=== PATIENT | male | born 1945 | race Caucasian/White ===

== ENCOUNTER 2019-11-02 19:27 | Inpatient (IN) | payer MEDICARE ==
[2019-11-02 20:16] LABS: #Eosinphils 0.4 thou/uL (0.0-0.7); #Lymphocytes 1.8 thou/uL (1.20-3.40); #Monocytes 1.5 thou/uL (0.11-0.59); #Neutrophils 12.2 thou/uL (1.40-6.50); %Basophils 0.3 % (0.0-1.0); %Eosinophils 2.3 % (0.0-10.0); %Monocytes 9.2 % (0.0-10.0); %Neutrophils 77.2 % (42.0-75.0); Hemoglobin 16.5 g/dL (14.0-18.0); Mean Corpuscular Hemoglobin 33.7 pg (27.0-31.0); Mean Corpuscular Volume 96.2 fL (78.0-98.0); Mean Platelet Volume 9.1 fL (7.4-10.4); Platelet Count 310 thou/uL (130-400); RBC Distribution Width 11.6 % (11.5-14.5); White Blood Cell (WBC) Count 15.8 thou/uL (4.8-10.8)
[2019-11-02 20:35] LABS: ALT (SGPT) 19 U/L (8-55); AST (SGOT) 14 U/L (5-34); Albumin 4.8 g/dL (3.4-4.8); Alkaline Phosphatase 115 U/L (40-110); Anion Gap 19 mmol/L (10-20); BUN (Urea Nitrogen) 17 mg/dL (8.4-25.7); Bilirubin, Total 0.6 mg/dL (0.2-1.2); Calc. Creatinine Clearance 0 mL/min (70-130); Calcium 10.3 mg/dL (7.8-10.44); Carbon Dioxide 24 mmol/L (23-31); Chloride 98 mmol/L (98-107); Estimated GFR-MDRD 65; Globulin 3.1 g/dL (2.4-3.5); Glucose 77 mg/dL (83-110); Potassium 3.2 mmol/L (3.5-5.1); Protein, Total 7.9 g/dL (5.8-8.1); Sodium 138 mmol/L (136-145)
[2019-11-02 22:04] LABS: Bilirubin Negative (Negative); Blood, Urine Negative (Negative); Clarity Clear (Clear); Glucose, Urine (Dipstick) Normal (Negative); Leukocyte Negative Leu/uL (Negative); Nitrite Negative (Negative); Protein, Urine (Dipstick) 10 mg/dL (Neg-Trace); Urobilinogen Normal mg/dL (Less than 2)
[2019-11-02 23:11] LABS: Lactic Acid 2.2 mmol/L (0.5-2.2)
[2019-11-02] MEDS ORDERED: Vancomycin 1 GM/200 ML BAG ONE (23:12)
[2019-11-02] MEDS ORDERED: Cefepime 2 GM VIAL ONE (23:12)
[2019-11-02] MEDS ORDERED: D5 1/2 NS w/20 mEq KCL 1,000 ML IV SCH (23:45)
[2019-11-03 01:47] VITALS: BMI 26.6
[2019-11-03] MEDS ORDERED: D5 1/2 NS w/20 mEq KCL 1,000 ML IV SCH (02:47)
[2019-11-03] MEDS ORDERED: HumaLOG 300 UNITS/3 ML VIAL SC PRN (07:57)
[2019-11-03] MEDS ORDERED: Bisacodyl 5 MG TAB PO PRN (07:57)
[2019-11-03] MEDS ORDERED: Bisacodyl 10 MG SUPP PR PRN (07:57)
[2019-11-03] MEDS ORDERED: Loratadine 10 MG TAB PO PRN (07:57)
[2019-11-03] MEDS ORDERED: Dextrose 5% in Water 1,000 ML IV PRN (07:57)
[2019-11-03] MEDS ORDERED: Acetaminophen 325 MG TAB PO PRN (07:57)
[2019-11-03] MEDS ORDERED: Sodium Chloride 0.65% Nasal 44 ML BOT EA NARE PRN (07:57)
[2019-11-03] MEDS ORDERED: Diabetic Tussin 200 MG/10 ML UDCUP PO PRN (07:57)
[2019-11-03] MEDS ORDERED: hydrALAZINE 20 MG/ML VIAL SLOW IVP PRN (07:57)
[2019-11-03] MEDS ORDERED: Ondansetron PF 4 MG/2 ML Vial IVP PRN (07:57)
[2019-11-03] MEDS ORDERED: Cepastat Lozenges 1 LOZ PO PRN (07:57)
[2019-11-03] MEDS ORDERED: Ondansetron ODT 4 MG TAB PO PRN (07:57)
[2019-11-03] MEDS ORDERED: Senokot S 8.6-50 MG TAB PO PRN (07:57)
[2019-11-03] MEDS ORDERED: Zolpidem Tartrate 5 MG TAB PO PRN (07:57)
[2019-11-03] MEDS ORDERED: Calcium Carbonate 500 MG ChewTAB PO PRN (07:57)
[2019-11-03] MEDS ORDERED: Artificial Tears 18 DROP/0.9 ML EA EYE PRN (07:57)
[2019-11-03] MEDS ORDERED: HYDROcodone/Acetaminophen 5/325 mg Tablet PO PRN (07:57)
[2019-11-03] MEDS ORDERED: Dextrose 50% Abboject 50 ML SYRINGE SLOW IVP PRN (07:57)
[2019-11-03] MEDS ORDERED: Loperamide HCl 2 MG CAP PO PRN (07:57)
[2019-11-03] MEDS ORDERED: Potassium Chloride 20 MEQ TAB PO SCH (08:15)
[2019-11-03] MEDS: Cefepime 1 GM in Sodium Chloride 0.9% 100 ML IVPB SCH ×2 (08:57→20:29)
[2019-11-03] MEDS: Furosemide 20 MG TAB PO SCH (08:58)
[2019-11-03] MEDS: Gabapentin 300 MG CAP PO SCH ×3 (08:58→20:30)
[2019-11-03] MEDS: Ascorbic Acid 500 mg Chewable Tablet PO SCH ×2 (08:58→20:30)
[2019-11-03] MEDS: Metoprolol Tartrate 25 MG TAB PO SCH ×2 (08:59→20:30)
[2019-11-03] MEDS: Tamsulosin HCl 0.4 MG CAP PO SCH (08:59)
[2019-11-03] MEDS: Famotidine 20 MG TAB PO SCH ×2 (08:59→20:29)
[2019-11-03] MEDS: Enoxaparin Sodium 40 MG/0.4 ML SYRINGE SC SCH (08:59)
[2019-11-03] MEDS: HumaLOG 300 UNITS/3 ML VIAL SC PRN ×3 (08:59→17:29)
[2019-11-03] MEDS ORDERED: Non-Formulary Item 1 EACH (Insulin Detemir 100 Units/Ml [Levemir] 10 UNITS) SC SCH ×2 (09:00→21:00)
--- NOTE | 2019-11-03 09:03 | RAD ---
CHEST 1 VIEW: INDICATION: Weakness and history of sepsis. COMPARISON: Prior exam dated 08/22/2016. FINDINGS: Cardiomegaly is stable-appearing. Lungs are clear. No pleural effusion is evident. No acute osseou s abnormality is noted. IMPRESSION: No acute cardiopulmonary abnormality. POS: BH
[2019-11-03] MEDS: Pramipexole Di-HCl 0.25 MG TAB PO SCH ×2 (10:31→21:00)
[2019-11-03] MEDS: Insulin Glargine 10 UNITS in Pre-Filled Syringe 1 EACH SC SCH ×2 (10:31→21:12)
--- NOTE | 2019-11-03 11:49 | HP ---
PRIMARY CARE PHYSICIAN: [facility] Call admission. REASON FOR ADMISSION: Hypoglycemia, lactic acidosis, weakness, rule out sepsis. HISTORY OF PRESENT ILLNESS: A 74-year-old male, who has underlying history of diabetes mellitus, on insulin, who was perfectly healthy yesterday morning. Later on, the patient was experiencing weakness in bilateral lower extremity. His blood sugar was fluctuating. He was feeling very weak on his both lower extremity and he checked his blood sugar at that time, it was 71. Per the patient, it was very low for him. The patient ate candy at home and slightly feeling better. Subsequently, his blood sugar again started dropping. He called Paramedics. The patient's blood sugar was improving at that time. The patient was worried about his fluctuating blood sugar and that is why he decided to come to the hospital. He was found with leukocytosis. The patient reports that he had a similar type of problem when he had positive blood culture. The patient denies any UTI symptoms. The patient denies any cough, shortness of breath, or any sick exposure. When the patient arrived to emergency room, he was diaphoretic and his blood sugar was low which was treated with dextrose solution. The patient was admitted to medical floor. He was also found with lactic acidosis and there was concern of underlying sepsis and that is why the patient was given antibiotic therapy in the emergency room. After admission, the patient's blood sugar was going up and that is why IV fluid was discontinued. When I saw this patient, at that time the patient was not reporting any lower extremity weakness. The patient was feeling that his lower extremity weakness is resolved. His blood sugar is going on the higher side. The patient denies any fever or chills. The patient denies any chest pain or palpitation. The patient denies any nausea, vomiting, diarrhea, or abdominal pain. REVIEW OF SYSTEMS: CONSTITUTIONAL: Negative for weight loss or gain, ability to conduct usual activities. SKIN: Negative for rash, itching. EYES: Negative for double vision, pain. ENT/MOUTH: Negative for nose bleeding, neck stiffness, pain, tenderness. CARDIOVASCULAR: Negative for palpitations, dyspnea on exertion, orthopnea. RESPIRATORY: Negative for shortness of breath, wheezing, cough, hemoptysis, fever or night sweats. GASTROINTESTINAL: Negative for poor appetite, abdominal pain, heartburn, nausea, vomiting, constipation, or diarrhea. GENITOURINARY: Negative for urgency, frequency, dysuria, nocturia. MUSCULOSKELETAL: Negative for pain, swelling. NEUROLOGIC/PSYCHIATRIC: Negative for anxiety, depression. ALLERGY/IMMUNOLOGIC: Negative for skin rash, bleeding tendency. Please see my HPI for pertinent positives and negatives. All other review of systems reviewed and negative except as mentioned in the HPI. PAST MEDICAL HISTORY: 1. Diabetes type 2, insulin requiring. 2. Peripheral neuropathy due to diabetes. 3. Hypertension. 4. Dyslipidemia. 5. History of prostate cancer. PAST SURGICAL HISTORY: 1. Back surgery in 2014. 2. Left elbow surgery. 3. Prostatectomy. PAST PSYCHIATRIC HISTORY: Reviewed and negative. SOCIAL HISTORY: The patient lives at home. No history of tobacco, alcohol, or illicit drug abuse. FAMILY HISTORY: Positive for coronary artery disease and diabetes and cancer. ALLERGIES: NO KNOWN DRUG ALLERGIES. CURRENT HOME MEDICATIONS: 1. Vitamin C of 1000 mg p.o. twice daily. 2. Tylenol 1000 mg twice daily p.r.n. 3. Metoprolol 50 mg p.o. twice daily. 4. Pramipexole 0.5 mg twice daily. 5. Tresiba 20 units subcu in the morning and 38 units at bedtime. 6. Lipitor 20 mg p.o. at bedtime. 7. Magnesium 800 mg twice daily. 8. Lasix 20 mg p.o. daily. 9. Potassium chloride 10 mEq p.o. daily. 10. Omeprazole 20 mg twice daily. EMERGENCY ROOM COURSE: The patient has received cefepime and vancomycin as well as dextrose with half-normal saline. PHYSICAL EXAMINATION: VITAL SIGNS: On arrival, blood pressure 103/80, pulse 103, respiratory rate 17, temperature 97.6, saturation 100% on room air, weight 95.7 kg. GENERAL: The patient is currently alert, awake, no acute distress. HEENT: Head; normocephalic, atraumatic. NECK: Supple. No JVD. No meningeal signs of irritation. LUNGS: Clear to auscultation without any rhonchi or rales. CARDIAC: S1 and S2 regular. No murmur. No gallop. No rub. ABDOMEN: Soft, bowel sounds present, nontender, nondistended. No organomegaly. No mass. EXTREMITIES: No edema. Good distal pulsation. NEUROLOGIC: Nonfocal examination. The patient is moving all 4 limbs without any weakness of either extremity. Sensation intact. Reflexes symmetrical. Cranial nerve 2 through 12 intact. Speech normal. PSYCHIATRIC: Normal affect. SKIN: No skin rash. HEMATOLOGIC: No lymphadenopathy. IMAGING STUDIES: EKG showing sinus tachycardia. Nonspecific ST-T changes. Chest x-ray based on my review, no acute cardiopulmonary process. SIGNIFICANT LABORATORY DATA: CBC: WBC 15.8, hemoglobin 16.5, platelet 310. D-dimer less than 0.27. BMP: Sodium 138, potassium 3.2, chloride 98, carbon dioxide 24, BUN 17, creatinine 1.10, glucose 77, calcium 10.3, lactic acid 5.1, magnesium 1.9. LFT: AST 14, ALT is 19, alkaline phosphatase 115, albumin 4.8. Troponin 0.013. CRP less than 0.50. Urinalysis normal. Blood culture negative so far. ASSESSMENT: 1. Symptomatic hypoglycemia associated with diabetes type 2 requiring insulin. 2. Diabetes type 2, requiring insulin. 3. Lactic acidosis, rule out sepsis. 4. Leukocytosis, rule out sepsis. 5. Hypokalemia, replaced. 6. Gastroesophageal reflux disease. 7. Hypertension. 8. Benign enlargement of prostate with history of prostate cancer. PLAN: We will continue with empiric cefepime until we rule out sepsis. We will start low dose of glargine insulin 10 units subcu b.i.d. I have reconciled his home medication. We will start PT and OT. We will watch for any hypoglycemia and adjust medication. If culture remains negative, then we will consider discontinuing antibiotic therapy. We will repeat labs tomorrow. We will replace potassium. DVT PROPHYLAXIS: Lovenox 40 mg subcu daily. GI PROPHYLAXIS: Pepcid 20 mg p.o. b.i.d. CODE STATUS: The patient is full code. The patient does not have any surrogate decision maker. DISPOSITION PLAN: Based on clinical course in the next 24-48 hours. Plan of care discussed with the patient in detail. Job ID: [id number]
[2019-11-03] MEDS: Potassium Chloride 10 MEQ TAB PO SCH (20:30)
[2019-11-03] MEDS: Atorvastatin Calcium 20 MG TAB PO SCH (20:30)
[2019-11-04 06:03] LABS: #Basophils 0.1 thou/uL (0.0-0.2); #Eosinphils 0.5 thou/uL (0.0-0.7); #Lymphocytes 1.3 thou/uL (1.20-3.40); #Monocytes 0.7 thou/uL (0.11-0.59); %Basophils 0.6 % (0.0-1.0); %Eosinophils 5.8 % (0.0-10.0); %Lymphocytes 15.6 % (21.0-51.0); %Monocytes 8.5 % (0.0-10.0); %Neutrophils 69.4 % (42.0-75.0); Hemoglobin 14.5 g/dL (14.0-18.0); Mean Corpuscular HGB CONC 33.8 g/dL (32.0-36.0); Mean Corpuscular Hemoglobin 32.9 pg (27.0-31.0); Mean Corpuscular Volume 97.3 fL (78.0-98.0); Mean Platelet Volume 9.3 fL (7.4-10.4); Platelet Count 240 thou/uL (130-400); RBC Distribution Width 11.6 % (11.5-14.5); Red Blood Cell (RBC) Count 4.39 mill/uL (4.70-6.10); White Blood Cell (WBC) Count 8.6 thou/uL (4.8-10.8)
[2019-11-04] MEDS: HumaLOG 300 UNITS/3 ML VIAL SC PRN ×3 (06:19→17:28)
[2019-11-04 06:24] LABS: Lactic Acid 1.2 mmol/L (0.5-2.2)
[2019-11-04 06:42] LABS: ALT (SGPT) 13 U/L (8-55); AST (SGOT) 14 U/L (5-34); Albumin 3.7 g/dL (3.4-4.8); Alkaline Phosphatase 87 U/L (40-110); Anion Gap 12 mmol/L (10-20); BUN (Urea Nitrogen) 14 mg/dL (8.4-25.7); Bilirubin, Total 0.6 mg/dL (0.2-1.2); Calc. Creatinine Clearance 103 mL/min (70-130); Calcium 8.5 mg/dL (7.8-10.44); Carbon Dioxide 24 mmol/L (23-31); Chloride 104 mmol/L (98-107); Estimated GFR-MDRD Greater than 90; Globulin 2.4 g/dL (2.4-3.5); Glucose 199 mg/dL (83-110); Potassium 4.1 mmol/L (3.5-5.1); Protein, Total 6.1 g/dL (5.8-8.1); Sodium 136 mmol/L (136-145)
[2019-11-04] MEDS: Enoxaparin Sodium 40 MG/0.4 ML SYRINGE SC SCH (08:01)
[2019-11-04] MEDS: Cefepime 1 GM in Sodium Chloride 0.9% 100 ML IVPB SCH ×2 (08:02→20:06)
[2019-11-04] MEDS: Tamsulosin HCl 0.4 MG CAP PO SCH (08:02)
[2019-11-04] MEDS: Furosemide 20 MG TAB PO SCH (08:02)
[2019-11-04] MEDS: Ascorbic Acid 500 mg Chewable Tablet PO SCH ×2 (08:02→20:06)
[2019-11-04] MEDS: Gabapentin 300 MG CAP PO SCH ×3 (08:02→20:06)
[2019-11-04] MEDS: Metoprolol Tartrate 25 MG TAB PO SCH ×2 (08:02→20:07)
[2019-11-04] MEDS: Pramipexole Di-HCl 0.25 MG TAB PO SCH ×2 (08:02→20:08)
[2019-11-04] MEDS: Famotidine 20 MG TAB PO SCH ×2 (08:02→20:06)
[2019-11-04] MEDS: Insulin Glargine 10 UNITS in Pre-Filled Syringe 1 EACH SC SCH (08:03)
--- NOTE | 2019-11-04 15:53 | PDOC.HOSPP ---
- Subjective Subjective: Seen and examined. Patient states that is feeling much better. Alert and oriented. Talking in full sentences. His white blood cell count has decrease from 15,000 down to 8000 on antibiotics. There is no obvious source of infection. He has a negative urine analysis, no URI symptoms and a negative chest x-ray. His abdomen is soft and nontender. Patient does tell me about episodes of diarrhea prior to coming the hospital. The order CT scan of the abdomen to rule out intra-abdominal pathology is a source of sepsis and diarrhea. Overall patient is improving on maximal medical therapy. - Objective Vital Signs & Weight: Vital Signs (12 hours) Temp Pulse Resp BP BP Pulse Ox 11/04/19 11:55 98.1 F 60 18 112/71 95 11/04/19 07:52 98.2 F 68 18 139/77 96 11/04/19 04:00 98.2 F 69 18 122/69 95 Weight Weight 202 lb I&O: 11/03/19 11/04/19 11/05/19 06:59 06:59 06:59 Intake Total 480 Balance 480 Result Diagrams: 11/04/19 05:43 11/04/19 05:43 Additional Labs: Accuchecks 11/04/19 11/04/19 11/04/19 11:45 05:14 01:36 POC Glucose 306 H 193 H 187 H 11/03/19 11/03/19 19:57 16:14 POC Glucose 364 H 383 H Radiology Reviewed by me: Yes Hospitalist ROS - Review of Systems All other systems reviewed; all pertinent +/- noted in HPI/Subj - Medication Medications: Active Medications Generic Name Dose Route Start Last Admin Trade Name Roland PRN Reason Stop Dose Admin Ascorbic Acid 1,000 mg 11/03/19 09:11/04/19 08:02 Vitamin C PO 1,000 mg BID KENAN Administration Atorvastatin Calcium 20 mg 11/03/19 21:00 11/03/19 20:30 Lipitor PO 20 mg HS KENAN Administration Enoxaparin Sodium 40 mg 11/03/19 09:00 11/04/19 08:01 Lovenox SC 40 mg 0900 KENAN Administration Famotidine 20 mg 11/03/19 09:00 11/04/19 08:02 Pepcid PO 20 mg BID KENAN Administration Furosemide 20 mg 11/03/19 09:00 11/04/19 08:02 Lasix PO 20 mg DAILY KENAN Administration Gabapentin 300 mg 11/03/19 09:00 11/04/19 14:08 Neurontin PO 300 mg TID KENAN Administration Cefepime HCl 1 gm/ Sodium 100 mls @ 200 mls/hr 11/03/19 09:00 11/04/19 08:02 Chloride IVPB 100 mls Q12HR KENAN Administration Insulin Human Lispro 0 units 11/03/19 07:57 11/04/19 13:21 Humalog SC 8 unit .MODERATE SLIDING SC PRN Administration Moderate Correctional Scale Insulin Human Lispro 0 units 11/03/19 07:57 11/03/19 21:10 Humalog SC 5 units .BEDTIME SLIDING SC PRN Administration Bedtime Correctional Scale Metoprolol Tartrate 50 mg 11/03/19 09:00 11/04/19 08:02 Lopressor PO 50 mg BID KENAN Administration Potassium Chloride 10 meq 11/03/19 21:00 11/03/19 20:30 Klor-Con 10 PO 10 meq HS KENAN Administration Pramipexole Dihydrochloride 0.5 mg 11/03/19 09:00 11/04/19 08:02 Mirapex PO 0.5 mg BID KENAN Administration Tamsulosin HCl 0.4 mg 11/03/19 09:00 11/04/19 08:02 Flomax PO 0.4 mg DAILY KENAN Administration Zolpidem Tartrate 5 mg 11/03/19 07:57 11/03/19 20:30 Ambien PO 5 mg HSPRN PRN Administration Insomnia - Exam General Appearance: NAD, awake alert Eye: anicteric sclera ENT: normocephalic atraumatic, moist mucosa Neck: supple, symmetric, no thyromegaly Heart: no murmur, no gallops, no rubs Respiratory: CTAB, no wheezes, no rales, no ronchi, normal chest expansion Gastrointestinal: soft, non-tender, no guarding, no rigidity Extremities: 1+ LE edema Skin: no lesions, no rashes Neurological: cranial nerve grossly intact, no focal deficits Musculoskeletal: generalized weakness Psychiatric: normal affect, A&O x 3 Hosp A/P (1) Sepsis Code(s): A41.9 - SEPSIS, UNSPECIFIED ORGANISM Status: Acute (2) Weakness Code(s): R53.1 - WEAKNESS Status: Acute (3) BPH (benign prostatic hyperplasia) Code(s): N40.0 - BENIGN PROSTATIC HYPERPLASIA WITHOUT LOWER URINRY TRACT SYMP Status: Chronic (4) DM type 2 (diabetes mellitus, type 2) Status: Chronic Qualifiers: (5) Dyslipidemia Code(s): E78.5 - HYPERLIPIDEMIA, UNSPECIFIED Status: Chronic (6) HTN (hypertension) Code(s): I10 - ESSENTIAL (PRIMARY) HYPERTENSION Status: Chronic Qualifiers: - Plan Plan: medical unit sepsis present on admission with no obvious source has improved on broad-spectrum IV antibiotics Carras[place] culture CT of the abdomen and pelvis to rule out intra-abdominal source of sepsis patient had diarrhea prior to admission urine analysis is benign chest x-ray clear no obvious skin/soft tissue infections Adjust insulin regimen continue other home medications as able blood pressure control blood sugar control G.I. prophylaxis DVT prophylaxis
--- NOTE | 2019-11-04 17:48 | CT ---
CT ABDOMEN AND PELVIS WITHOUT CONTRAST 11/04/19 COMPARISON: None. HISTORY: Fall on neck. Patient lost feeling in his legs. Sepsis without obvious source. TECHNIQUE: Multiple contiguous axial images were obtained in a CT of the abdomen and pelvis without contrast. Sa gittal and coronal reformats were performed. Comparison is CT abdomen/pelvis 04/28/12. FINDINGS: There is a 12.4 cm cyst in the left kidney, grossly stable in size compared to the prior CT. The live r, gallbladder, right kidney, adrenal glands, spleen, and pancreas are unremarkable, although evaluat ion is limited without IV contrast. The large and small bowel are unremarkable. The appendix is normal. No abdominal or pelvic lymphadeno jomar are seen. Atherosclerotic calcifications are seen in the aorta. There is a moderate hiatal augustus ia. Degenerative and postsurgical changes are seen in the spine. The visualized inferior thorax is unrema rkable. There are small fat containing periumbilical ventral hernias. IMPRESSION: 1. No evidence of acute intra-abdominal/pelvic abnormality. 2. Hiatal hernia. 3. Left renal cyst. 1. POS: MARIA ESTHERA
[2019-11-04] MEDS: Atorvastatin Calcium 20 MG TAB PO SCH (20:06)
[2019-11-04] MEDS: Potassium Chloride 10 MEQ TAB PO SCH (20:07)
[2019-11-04] MEDS: Insulin Glargine 14 UNITS in Pre-Filled Syringe 1 EACH SC SCH (20:07)
[2019-11-05] MEDS: HumaLOG 300 UNITS/3 ML VIAL SC PRN ×2 (06:27→17:30)
[2019-11-05] MEDS: Cefepime 1 GM in Sodium Chloride 0.9% 100 ML IVPB SCH ×2 (08:42→21:02)
[2019-11-05] MEDS: Enoxaparin Sodium 40 MG/0.4 ML SYRINGE SC SCH (08:42)
[2019-11-05] MEDS: Insulin Glargine 14 UNITS in Pre-Filled Syringe 1 EACH SC SCH ×2 (08:42→21:04)
[2019-11-05] MEDS: Pramipexole Di-HCl 0.25 MG TAB PO SCH ×2 (08:43→21:03)
[2019-11-05] MEDS: Tamsulosin HCl 0.4 MG CAP PO SCH (08:44)
[2019-11-05] MEDS: Ascorbic Acid 500 mg Chewable Tablet PO SCH ×2 (08:44→21:02)
[2019-11-05] MEDS: Gabapentin 300 MG CAP PO SCH ×3 (08:44→21:03)
[2019-11-05] MEDS: Furosemide 20 MG TAB PO SCH (08:44)
[2019-11-05] MEDS: Famotidine 20 MG TAB PO SCH ×2 (08:44→21:02)
[2019-11-05] MEDS: Metoprolol Tartrate 25 MG TAB PO SCH ×2 (08:48→21:03)
[2019-11-05] MEDS ORDERED: Magnevist 469MG/ML 20 ML VIAL ONE ×3 (09:59)
--- NOTE | 2019-11-05 13:56 | PDOC.HOSPP ---
- Subjective Encounter Date: 11/05/19 Encounter Time: 08:45 Subjective: feels better, has some pain in his post neck, no specific weakness anywhere no sob or palp or cough - Objective Vital Signs & Weight: Vital Signs (12 hours) Temp Pulse Resp BP BP Pulse Ox 11/05/19 08:00 93 L 11/05/19 07:22 98.3 F 88 19 108/73 93 L 11/05/19 04:01 97.9 F 68 18 137/76 93 L Weight Weight 202 lb I&O: 11/04/19 11/05/19 11/06/19 06:59 06:59 06:59 Intake Total 480 820 Balance 480 820 Result Diagrams: 11/04/19 05:43 11/04/19 05:43 Additional Labs: Accuchecks 11/05/19 11/05/19 11/05/19 11:47 04:09 00:10 POC Glucose 292 H 298 H 318 H 11/04/19 11/04/19 19:38 15:55 POC Glucose 222 H 304 H Hospitalist ROS - Medication Medications: Active Medications Generic Name Dose Route Start Last Admin Trade Name Freq PRN Reason Stop Dose Admin Acetaminophen 650 mg 11/03/19 07:57 11/05/19 08:44 Tylenol PO 650 mg Q4H PRN Administration Headache/Fever/Mild Pain (1-3) Ascorbic Acid 1,000 mg 11/03/19 09:00 11/05/19 08:44 Vitamin C PO 1,000 mg BID KENAN Administration Atorvastatin Calcium 20 mg 11/03/19 21:00 11/04/19 20:06 Lipitor PO 20 mg HS KENAN Administration Enoxaparin Sodium 40 mg 11/03/19 09:00 11/05/19 08:42 Lovenox SC 40 mg 0900 KENAN Administration Famotidine 20 mg 11/03/19 09:00 11/05/19 08:44 Pepcid PO 20 mg BID KENAN Administration Furosemide 20 mg 11/03/19 09:00 11/05/19 08:44 Lasix PO 20 mg DAILY KENAN Administration Gabapentin 300 mg 11/03/19 09:00 11/05/19 08:44 Neurontin PO 300 mg TID KENAN Administration Cefepime HCl 1 gm/ Sodium 100 mls @ 200 mls/hr 11/03/19 09:00 11/05/19 08:42 Chloride IVPB 100 mls Q12HR KENAN Administration Insulin Glargine 14 units/ 0.14 mls @ 0 mls/hr 11/04/19 21:00 11/05/19 08:42 Miscellaneous Medication SC 0.14 mls BID KENAN Administration As Directed Insulin Human Lispro 0 units 11/03/19 07:57 11/05/19 06:27 Humalog SC 6 unit .MODERATE SLIDING SC PRN Administration Moderate Correctional Scale Insulin Human Lispro 0 units 11/03/19 07:57 11/03/19 21:10 Humalog SC 5 units .BEDTIME SLIDING SC PRN Administration Bedtime Correctional Scale Metoprolol Tartrate 50 mg 11/03/19 09:00 11/05/19 08:48 Lopressor PO 50 mg BID KENAN Administration Potassium Chloride 10 meq 11/03/19 21:00 11/04/19 20:07 Klor-Con 10 PO 10 meq HS KENAN Administration Pramipexole Dihydrochloride 0.5 mg 11/03/19 09:00 11/04/19 20:08 Mirapex PO 0.5 mg BID KENAN Administration Tamsulosin HCl 0.4 mg 11/03/19 09:00 11/05/19 08:44 Flomax PO 0.4 mg DAILY KENAN Administration Zolpidem Tartrate 5 mg 11/03/19 07:57 11/03/19 20:30 Ambien PO 5 mg HSPRN PRN Administration Insomnia - Exam General Appearance: awake alert Eye: PERRL, anicteric sclera ENT: no oropharyngeal lesions, moist mucosa Neck: supple, no JVD Heart: RRR, no murmur Respiratory: no wheezes, no rales Gastrointestinal: soft, non-tender, non-distended, normal bowel sounds Extremities: no cyanosis, 1+ LE edema Neurological: cranial nerve grossly intact, no focal deficits Psychiatric: normal affect, A&O x 3 Hosp A/P (1) Sepsis Code(s): A41.9 - SEPSIS, UNSPECIFIED ORGANISM Status: Acute Qualifiers: Sepsis type: sepsis due to unspecified organism Sepsis acute organ dysfunction status: without acute organ dysfunction Qualified Code(s): A41.9 - Sepsis, unspecified organism (2) Weakness Code(s): R53.1 - WEAKNESS Status: Acute (3) BPH (benign prostatic hyperplasia) Code(s): N40.0 - BENIGN PROSTATIC HYPERPLASIA WITHOUT LOWER URINRY TRACT SYMP Status: Chronic Qualifiers: Lower urinary tract symptom presence: unspecified whether lower urinary tract symptoms present Qualified Code(s): N40.0 - Benign prostatic hyperplasia without lower urinary tract symptoms (4) DM type 2 (diabetes mellitus, type 2) Status: Chronic Qualifiers: 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 Diabetes mellitus complication status: with other specified complication Qualified Code (s): E11.69 - Type 2 diabetes mellitus with other specified complication; Z79.4 - equipment operator intermodal yard (current) use of insulin (5) Dyslipidemia Code(s): E78.5 - HYPERLIPIDEMIA, UNSPECIFIED Status: Chronic (6) HTN (hypertension) Code(s): I10 - ESSENTIAL (PRIMARY) HYPERTENSION Status: Chronic Qualifiers: - Plan is on cefepime, teague cultures are -ve, will get MRI of spine to r/o abscess ( prior h/o epidural abscess?) has ambulated with PT around 250ft continue lipitor, lopressor, lasix, neurontin, lantus bid, flomax, mirapex hemo stable
--- NOTE | 2019-11-05 17:08 | MRI ---
MR OF THE THORACIC SPINE WITH AND WITHOUT CONTRAST INDICATION: Difficulty controlling legs with chronic neck and back pain; concern for epidural abscess TECHNIQUE: Multiplanar multisequence MR images were obtained of the thoracic spine with and without c ontrast. Spine count series was provided. 20 cc of MultiHance was utilized for the exam. COMPARISON: None FINDINGS: Motion artifact heavily limits image detail of the examination. Bone marrow signal intensity: Normal Spinal alignment: Normal Spinal cord: Normal signal intensity and contour. Paravertebral soft tissues: Normal Vertebral levels: T1-T2: No appreciable central canal or neural foraminal narrowing is evident. T2-T3: No appreciable central canal or neural foraminal narrowing. T3-T4: No appreciable central canal or neural foraminal narrowing.. T4-T5: No appreciable central canal or neural foraminal narrowing. T5-T6: No appreciable central canal or neural foraminal narrowing. T6-T7: No appreciable central canal or neural foraminal narrowing. T7-T8: No appreciable central canal or neural foraminal narrowing. T8-T9: No appreciable central canal or neural foraminal narrowing. T9-T10: No appreciable central canal or neural foraminal narrowing. T10-T11: No appreciable central canal or neural foraminal narrowing. T11-T12: No appreciable central canal or neural foraminal narrowing. T12-L1: No appreciable central canal or neural foraminal narrowing. Additional findings: None. IMPRESSION: 1. Limitations examination due to motion artifact. 2. No definite MR evidence for the presence of an epidural abscess within the thoracic spine.
--- NOTE | 2019-11-05 17:11 | MRI ---
MRI cervical spine without and with gadolinium contrast HISTORY: Neck pain. Sepsis. Evaluate for epidural abscess. FINDINGS: There is desiccation of all of the intervertebral discs. Vertebral body heights are [place]. Mild discogenic endplate changes within the bone marrow. No abnormal areas of contrast enhancement are apparent, allowing for severe motion artifact on the postcontrast images. C2-3: Mild osteophytosis. Central canal and neural foramina are patent. C3-4: Prominent posterior disc protrusion, greater to the right of midline, effacing the ventral and right ventral aspect of the spinal cord, flattening it by approximately 20%. No abnormal signal is apparent within the spinal cord. Disc protrusion and degenerative changes result in severe right and moderate left foraminal stenoses. C4-5: Disc space narrowing. Mild posterior osteophyte/disc complex and circumferential degenerative c hanges. Moderate stenosis of the central canal. Neural foramina with at least severe right and moderate left foraminal stenoses. Evaluation limited due to motion. C5-6: Minimal degenerative retrolisthesis. Posterior disc bulge and circumferential degenerative [place] ges. Severe stenosis of the central canal. Moderate right and severe left foraminal stenoses. C6-7: Mild posterior osteophyte/disc complex. Effacement of the thecal sac without significant centra l canal or foraminal stenoses. C7-T1: Mild osteophytosis. Central canal and neural foramina are patent. Severe motion artifact on the postcontrast images. No enhancing epidural fluid collections are appare nt. IMPRESSION : Severe multilevel degenerative changes throughout the cervical spine as detailed above. There is slig ht compression of the right side of the spinal cord at the C3-4 level without myelomalacia. Multilevel prominent foraminal stenoses. No evidence of epidural abscess.
--- NOTE | 2019-11-05 17:50 | MRI ---
MRI LUMBAR SPINE WITH AND WITHOUT CONTRAST: 11/05/19 INDICATIONS: Left lower extremity weakness. Sepsis. Assess for abscess. Correlation made to CT lumbar spine dated 08/22/16. Severe motion artifact severely degrades this study. There is anterior wedging of the L4 vertebra with a superior end plate deformity. This was present on the CT [id number] and shows no significant change. The other lumbar vertebrae maintain height and alignm ent. The pedicle screws at L3, L4, and L5 levels are again seen and were present on the prior CT. A p edicle screw at L3 on the right has been removed as was noted on the prior CT. No evidence of disc protrusion. Disc bulge and hypertrophic change results in mild to moderate centra l canal stenosis at L2-3. At L3-4, evidence of mild central canal stenosis. At L4-5, posterior bony hypertrophy mildly flattens the anterior thecal sac without central canal wilner nosis. At L5-S1, no significant disc bulge or protrusion. There is high T1 and T2 signal with a laminectomy defect posteriorly at L4-5. No definite fluid colle ction or abscess seen although significant artifact limits evaluation. High T1 signal is seen surroun ding the pedicle screws on both pre and postcontrast images. However, the postcontrast signal is much more pronounced, I cannot exclude an infectious process involving the pedicle screws. There is no ev idence of epidural abscess or epidural fluid collection. IMPRESSION: 1. Severely limited exam due to motion artifact. 2. No definite epidural abscess or fluid collection. 3. Evidence of enhancement surrounding the pedicle screws, although high T1 signal is also seen on the noncontrast study. The significance of this is uncertain. Consider CT of lumbar spine which wo uld mitigate motion artifact. This may be helpful to assess for loosening or fluid surrounding the pe dicle screws and may also be of benefit in assessing fluid collections in the posterior soft tissues. POS: AGW
--- NOTE | 2019-11-05 18:51 | ULT ---
BILATERAL LOWER EXTREMITY VENOUS DOPPLER EVALUATION PROVIDED CLINICAL HISTORY: Concern for deep venous thrombus within both lower extremities; bilateral lower extremity pain TECHNIQUE: Grayscale, color doppler and spectral doppler images were obtained of the common femoral , femoral, profunda femoral, popliteal and posterior tibial veins of both lower extremities. FINDINGS: There is normal compression, flow and augmentation seen with the deep venous structures within both l ower extremities. IMPRESSION: No sonographic evidence for lower extremity deep venous thrombosis.
[2019-11-05] MEDS: Atorvastatin Calcium 20 MG TAB PO SCH (21:02)
[2019-11-05] MEDS: Potassium Chloride 10 MEQ TAB PO SCH (21:03)
[2019-11-06] MEDS: HumaLOG 300 UNITS/3 ML VIAL SC PRN (06:38)
[2019-11-06] MEDS: Famotidine 20 MG TAB PO SCH (08:20)
[2019-11-06] MEDS: Ascorbic Acid 500 mg Chewable Tablet PO SCH (08:20)
[2019-11-06] MEDS: Furosemide 20 MG TAB PO SCH (08:20)
[2019-11-06] MEDS: Metoprolol Tartrate 25 MG TAB PO SCH (08:20)
[2019-11-06] MEDS: Pramipexole Di-HCl 0.25 MG TAB PO SCH (08:20)
[2019-11-06] MEDS: Tamsulosin HCl 0.4 MG CAP PO SCH (08:20)
[2019-11-06] MEDS: Enoxaparin Sodium 40 MG/0.4 ML SYRINGE SC SCH (08:21)
[2019-11-06] MEDS: Gabapentin 300 MG CAP PO SCH (08:21)
[2019-11-06 08:33] VITALS: BP 138/71; TEMP 97.8
[2019-11-06] MEDS ORDERED: Insulin Glargine 25 UNITS in Pre-Filled Syringe 1 EACH SC SCH (09:00)
[2019-11-06] MEDS ORDERED: Cephalexin 250 MG CAP PO SCH (09:00)
--- NOTE | 2019-11-07 15:19 | EKG ---
Test Reason : EMERGENCY Blood Pressure : / mmHG Vent. Rate : 104 BPM Atrial Rate : 104 BPM P-R Int : 156 ms QRS Dur : 092 ms QT Int : 304 ms P-R-T Axes : 031 -11 -16 degrees QTc Int : 399 ms Sinus tachycardia Possible Left atrial enlargement Possible Anterior infarct , age undetermined Abnormal ECG Confirmed by FELISA MORENO DO ([id number]), photography editor JOCELYN PERALTA ([id number]) on 11/07/2019 3:19:00 PM Referred By: Confirmed By:FELISA MORENO DO
--- NOTE | 2019-11-07 18:16 | DIS ---
DATE OF ADMISSION: 11/02/2019 DATE OF DISCHARGE: 11/06/2019 DISCHARGE DISPOSITION: To home. PRIMARY DISCHARGE DIAGNOSES: Sepsis got resolved. Lower extremity weakness, resolved. SECONDARY DISCHARGE DIAGNOSES: Hypertension, dyslipidemia, diabetes mellitus type 2, and benign prostatic hyperplasia. PROCEDURES DONE DURING HOSPITALIZATION: Chest x-ray done, showed no acute cardiopulmonary abnormalities. CT of the abdomen and pelvis without contrast done, showed no acute abnormality. There was hiatal hernia (left renal cyst). Ultrasound venous Doppler of both lower extremities done, showed no evidence of DVT. MRI lumbar spine with and without contrast done, showed limited exam due to motion artifact. No definite epidural abscess or fluid collection seen. There is evidence of enhancement of surrounding pedicle screws. MRI of the cervical spine with and without contrast done, showed severe multilevel degenerative changes, slight compression of the right side of the spinal cord at the C3-4 level without myelomalacia. No evidence of epidural abscess. Thoracic spine MRI with and without contrast done, showed no definite evidence of epidural abscess. The exam was limited due to motion artifact. Blood cultures x2, no growth. Urine culture, no growth. Had a white count of 15 on the day of admission with discharge numbers of 8.6, H and H 14 and 42, platelet count 240, MCV 97. BUN 14, creatinine 0.7. Liver enzymes within normal limits. Albumin is 3.7. Procalcitonin 0.06. Lactic acid was 5.1 on the day of admission. CRP was less than 0.50. DISCHARGE MEDICATIONS: 1. Keflex 500 mg p.o. 3 times daily for another 5 days. 2. Gabapentin 300 mg p.o. three times daily. 3. Levemir 20 units subcu q.a.m. 4. Flomax 0.4 mg p.o. daily. 5. Mirapex 0.5 mg p.o. twice daily. 6. K-Dur extended release 10 mEq p.o. at bedtime. 7. Omeprazole 20 mg twice daily. 8. Metoprolol 50 mg twice daily. 9. Magnesium glycinate daily. 10. Levemir 28 units subcu at bedtime. 11. Humalog sliding scale. 12. Lasix 20 mg daily. 13. Atorvastatin 20 mg p.o. at bedtime. 14. Vitamin C daily. ALLERGIES: NO KNOWN DRUG ALLERGIES. DISCHARGE PLAN: The patient to follow up with his primary care physician, Dr. Ricardo Strickland, on 11/13/2019 at 11 a.m. BRIEF COURSE DURING HOSPITALIZATION: The patient initially got admitted on the with complaints of lower extremity pain, low blood sugar levels, elevated white count to rule out sepsis. He has had pancultures drawn, which have come back negative. In view of prior history of postop lumbar spine infection, the patient has had MRIs of entire spine, which showed no obvious evidence of epidural abscess. Within 24 hours of hospitalization, the patient started to ambulate with complete strength in his lower extremities at his baseline. He was on IV antibiotics, which has been transitioned to Keflex. Source of his sepsis is unclear and as he got improved on antibiotics he was switched over to oral antibiotics. He is hemodynamically stable, ambulating, and eating well prior to discharge. Please note, I have seen and examined the patient on the day of discharge. Job ID: [id number] MTDD
--- NOTE | 2019-11-09 09:59 | PQF ---
OUSMANE AMOS VINAYA KUMAR MD [id number] CLINICAL DOCUMENTATION CLARIFICATION FORM: POST DISCHARGE Addendum to original discharge summary date: ____ Late entry note date: __ DATE: 11/09/2019 ATTN: Jaxson Garland Please exercise your independent, professional judgment in responding to the clarification form. Clinical indicators are provided on the bottom of this form for your review Please check appropriate box(s): [ x] Sepsis [ ] DM with hypoglycemia [ ] Other diagnosis [ ] Unable to determine For continuity of documentation, please document condition throughout progress notes and discharge summary. Thank You. CLINICAL INDICATORS - SIGNS / SYMPTOMS / LABS HP 11/01 "experiencing bilateral weakness" HP 11/01 "Acidosis" HP 11/01 "he was found to have leukocytosis" DS 11/05 "urine and blood culture: no growth" DS 11/05 "low blood sugar level" DS 11/05 "source of sepsis is unclear" Vital Signs 11/02: Temp=98.5 Unuvm=969 Respi=18 ER=529/84 Labs WBC: 11/01=15.8 11/03=8.6 Labs Lactate: 11/01=5.1 11/03=1.2 Labs Procalcitonin: 11/02=0.06 Labs Glucose: 11/01=69 RISK FACTORS 74 years old male-ED Notes 11/01 DM-ED Notes 11/01 HTN-ED Notes 11/01 HLD-ED Notes 11/01 Prostate cancer-HP 11/01 TREATMENTS: Blood and urine culture-DS 11/05 Cefepime 2gm IV-AUG 26 Vancimycin 1gm IV-AUG 26 IVF-AUG 26 Glucagon 1mg IM-AUG 26 (This form is maintained as a part of the permanent medical record) 2014 [employer]. All Rights Reserved [email or web address] [phone] GLORIA
== END 2019-11-06 15:10 | disposition home or self-care (01) | DRG 872 ==
LOC: ERS 19:27 → T4-B 23:40
PROVIDERS: ADMIT Internal Medicine; ATTEND Internal Medicine
DX: A41.9 Sepsis, unspecified organism (principal); E87.2 Acidosis; E11.649 Type 2 diabetes mellitus with hypoglycemia without coma; E11.42 Type 2 diabetes mellitus with diabetic polyneuropathy; E78.5 Hyperlipidemia, unspecified; I10 Essential (primary) hypertension; N28.1 Cyst of kidney, acquired; K44.9 Diaphragmatic hernia without obstruction or gangrene; E87.6 Hypokalemia; K21.9 Gastro-esophageal reflux disease without esophagitis; N40.0 Benign prostatic hyperplasia without lower urinary tract symptoms; Z85.46 Personal history of malignant neoplasm of prostate; Z79.4 Long term (current) use of insulin; Z79.899 Other long term (current) drug therapy
CPT/HCPCS: 36415; 36416; 51701; 71045; 72156; 72157; 72158; 74176; 80053; 81003; 82533; 83605; 83735; 84145; 84484; 85025; 85379; 86140; 87040; 87086; 93005; 93970; 96361; 96365; A9579; J0692; J1650; J1815; J3370; J3480; J3490

== ENCOUNTER 2020-02-16 21:24 | Emergency (ER) | payer MEDICARE ==
--- NOTE | 2020-02-16 23:26 | ULT ---
EXAM: Bilateral lower extremity venous ultrasound HISTORY: Bilateral lower extremity pain and edema COMPARISON: 11/05/2019 TECHNIQUE: Multiplanar grayscale and color Doppler images were obtained in a bilateral lower extremit y venous ultrasound. Spectral analysis of the Doppler waveforms were performed. FINDINGS: The bilateral common femoral vein, profunda femoral veins, superficial femoral veins, and p opliteal veins are normal in appearance without visible thrombus. These vessels demonstrate normal compression, flow, and augmentation. The bilateral posterior tibial veins and greater saphenous veins are patent without evidence of throm bus. IMPRESSION: No evidence of DVT.
== END 2020-02-16 23:32 | disposition home or self-care (01) ==
LOC: ERS 21:24
DX: E11.51 Type 2 diabetes mellitus with diabetic peripheral angiopathy without gangrene (principal); I73.9 Peripheral vascular disease, unspecified; E11.42 Type 2 diabetes mellitus with diabetic polyneuropathy; I10 Essential (primary) hypertension; E78.5 Hyperlipidemia, unspecified; Z79.01 Long term (current) use of anticoagulants; Z79.899 Other long term (current) drug therapy; Z79.4 Long term (current) use of insulin
CPT/HCPCS: 93970

== ENCOUNTER 2020-06-21 05:07 | Emergency (ER) | payer MEDICARE | END 2020-06-21 05:26 | disposition home or self-care (01) | LOC: ERS 05:07 | DX: K12.1 Other forms of stomatitis (principal) | CPT/HCPCS: 99282 ==

== ENCOUNTER 2020-07-26 03:49 | Emergency (ER) | payer MEDICARE, OTHER | END 2020-07-26 04:39 | disposition home or self-care (01) | LOC: ERS 03:49 | DX: G25.81 Restless legs syndrome (principal); T16.1XXA Foreign body in right ear, initial encounter; E11.9 Type 2 diabetes mellitus without complications; E78.5 Hyperlipidemia, unspecified; I10 Essential (primary) hypertension | CPT/HCPCS: 99282 ==

== ENCOUNTER 2020-07-29 00:04 | Emergency (ER) | payer OTHER | END 2020-07-29 01:46 | disposition home or self-care (01) | LOC: ERS 00:04 | DX: G25.81 Restless legs syndrome (principal); E11.40 Type 2 diabetes mellitus with diabetic neuropathy, unspecified; I10 Essential (primary) hypertension; Z79.4 Long term (current) use of insulin; Z79.899 Other long term (current) drug therapy | CPT/HCPCS: 99283 ==

== ENCOUNTER 2020-09-13 12:49 | Inpatient (IN) | payer MEDICARE ==
[2020-09-13 13:39] LABS: #Basophils 0.1 thou/uL (0.0-0.2); #Eosinphils 0.1 thou/uL (0.0-0.7); #Lymphocytes 0.7 thou/uL (1.20-3.40); #Monocytes 0.6 thou/uL (0.11-0.59); #Neutrophils 10.6 thou/uL (1.40-6.50); %Basophils 0.5 % (0.0-1.0); %Eosinophils 0.7 % (0.0-10.0); %Lymphocytes 5.4 % (21.0-51.0); %Monocytes 5.3 % (0.0-10.0); %Neutrophils 88.1 % (42.0-75.0); Hemoglobin 13.7 g/dL (14.0-18.0); Mean Corpuscular HGB CONC 34.7 g/dL (32.0-36.0); Mean Corpuscular Hemoglobin 32.9 pg (27.0-31.0); Mean Platelet Volume 8.6 fL (7.4-10.4); Platelet Count 282 thou/uL (130-400); RBC Distribution Width 11.9 % (11.5-14.5); Red Blood Cell (RBC) Count 4.15 mill/uL (4.70-6.10)
[2020-09-13] MEDS ORDERED: Acetaminophen 500 MG TAB ONE (13:43)
[2020-09-13 14:04] LABS: ALT (SGPT) 22 U/L (8-55); AST (SGOT) 23 U/L (5-34); Albumin 3.9 g/dL (3.4-4.8); Alkaline Phosphatase 126 U/L (40-110); Anion Gap 17 mmol/L (10-20); BUN (Urea Nitrogen) 17 mg/dL (8.4-25.7); Bilirubin, Total 0.9 mg/dL (0.2-1.2); Calc. Creatinine Clearance 0 mL/min (70-130); Calcium 8.6 mg/dL (7.8-10.44); Carbon Dioxide 20 mmol/L (23-31); Chloride 90 mmol/L (98-107); Globulin 2.9 g/dL (2.4-3.5); Potassium 5.2 mmol/L (3.5-5.1); Protein, Total 6.8 g/dL (5.8-8.1); Sodium 122 mmol/L (136-145)
[2020-09-13 14:21] LABS: Glucose 723 mg/dL (83-110)
[2020-09-13 14:48] LABS: Actual Bicarbonate (HCO3v) 21 mEq/L (22-28); Analyzer IN Cardio ER; Base Excess -3.9 mEq/L (-2.0 to +3.0); Calcium, Ionized (venous) 1.12 mmol/L (1.16-1.32); Chloride (VBG) 93 mmol/L (98-106); Hemoglobin (Hb) 14.4 g/dL (12.6-17.4); Potassium (VBG) 4.72 mmol/L (3.70-5.30); Sodium 125.2 mmol/L (133-146); pH (venous) 7.35 (7.32-7.43)
[2020-09-13] MEDS ORDERED: INSULIN REGULAR IN 0.9 % NACL 100 UNIT/100 ML BAG ONE (15:34)
[2020-09-13] MEDS ORDERED: Acetaminophen 325 MG TAB PO PRN (19:05)
[2020-09-13 20:13] LABS: Anion Gap 10 mmol/L (10-20); BUN (Urea Nitrogen) 13 mg/dL (8.4-25.7); Calc. Creatinine Clearance 0 mL/min (70-130); Calcium 7.8 mg/dL (7.8-10.44); Carbon Dioxide 23 mmol/L (23-31); Chloride 105 mmol/L (98-107); Glucose 239 mg/dL (83-110); Potassium 3.9 mmol/L (3.5-5.1); Sodium 134 mmol/L (136-145)
[2020-09-13] MEDS ORDERED: Dextrose 50% Abboject 50 ML SYRINGE SLOW IVP PRN (20:41)
[2020-09-13] MEDS ORDERED: Dextrose 5% in Water 1,000 ML IV PRN (20:45)
[2020-09-13] MEDS ORDERED: Electrolyte Replacement Protocol FS PRN (20:45)
[2020-09-13] MEDS ORDERED: Dextrose 5 %-0.45 % NaCl 1,000 ML IV PRN (20:45)
[2020-09-13] MEDS ORDERED: HUMULIN R 100 UNITS in Sodium Chloride 0.9% 100 ML IVPB SCH (20:45)
[2020-09-13] MEDS ORDERED: NS 0.9% w/ 20 MEQ KCL 1,000 ML/1,000 ML BAG IV PRN ×2 (20:45)
[2020-09-13] MEDS ORDERED: ADD ELECTROLYTE REPLACEMENT SET TO PROFILE FS SCH (20:45)
[2020-09-13] MEDS ORDERED: Sodium Chloride 0.9% 1,000 ML IV PRN ×4 (20:45)
[2020-09-13] MEDS ORDERED: Atorvastatin Calcium 20 MG TAB PO SCH (21:00)
[2020-09-13] MEDS ORDERED: Pramipexole Di-HCl 1 MG TAB PO SCH (21:00)
[2020-09-13] MEDS: D5 1/2 NS w/20 mEq KCL 1,000 ML IV PRN (21:25)
[2020-09-13] MEDS: Metoprolol Tartrate 25 MG TAB PO SCH (21:51)
[2020-09-13] MEDS: Gabapentin 300 MG CAP PO SCH (21:51)
[2020-09-13 23:05] VITALS: BMI 26.2
[2020-09-14] MEDS: D5 1/2 NS w/20 mEq KCL 1,000 ML IV PRN ×4 (01:44→14:26)
[2020-09-14 03:49] LABS: #Basophils 0.1 thou/uL (0.0-0.2); #Eosinphils 0.3 thou/uL (0.0-0.7); #Lymphocytes 1.6 thou/uL (1.20-3.40); #Monocytes 0.8 thou/uL (0.11-0.59); #Neutrophils 6.7 thou/uL (1.40-6.50); %Basophils 0.7 % (0.0-1.0); %Eosinophils 2.9 % (0.0-10.0); %Lymphocytes 16.9 % (21.0-51.0); %Monocytes 8.4 % (0.0-10.0); %Neutrophils 71.2 % (42.0-75.0); Mean Corpuscular HGB CONC 34.6 g/dL (32.0-36.0); Mean Corpuscular Hemoglobin 32.9 pg (27.0-31.0); Mean Platelet Volume 8.5 fL (7.4-10.4); Platelet Count 265 thou/uL (130-400); RBC Distribution Width 11.9 % (11.5-14.5); Red Blood Cell (RBC) Count 3.65 mill/uL (4.70-6.10); White Blood Cell (WBC) Count 9.4 thou/uL (4.8-10.8)
[2020-09-14 04:05] LABS: Anion Gap 11 mmol/L (10-20); BUN (Urea Nitrogen) 9 mg/dL (8.4-25.7); Calc. Creatinine Clearance 108 mL/min (70-130); Calcium 7.7 mg/dL (7.8-10.44); Carbon Dioxide 24 mmol/L (23-31); Chloride 106 mmol/L (98-107); Glucose 145 mg/dL (83-110); Potassium 3.9 mmol/L (3.5-5.1); Sodium 137 mmol/L (136-145)
[2020-09-14] MEDS: Gabapentin 300 MG CAP PO SCH ×2 (08:37→20:02)
[2020-09-14] MEDS: Metoprolol Tartrate 25 MG TAB PO SCH ×2 (08:37→20:01)
[2020-09-14] MEDS: Furosemide 20 MG TAB PO SCH (08:37)
[2020-09-14] MEDS: Enoxaparin Sodium 30 MG/0.3 ML SYRINGE SC SCH (08:38)
[2020-09-14] MEDS ORDERED: Lantus 1000 UNITS/10 ML VIAL SC SCH (16:00)
[2020-09-14] MEDS: D5 1/2 NS w/20 mEq KCL 1,000 ML IV SCH ×2 (16:27→21:48)
[2020-09-14 19:33] LABS: SARS-CoV-2 PCR by NAA Not Detected (NotDetected)
[2020-09-14] MEDS: Ascorbic Acid 500 mg Chewable Tablet PO SCH (20:01)
[2020-09-14] MEDS: Pramipexole Di-HCl 0.25 MG TAB PO SCH (20:05)
[2020-09-14] MEDS: HumaLOG 300 UNITS/3 ML VIAL SC PRN (20:12)
[2020-09-14] MEDS ORDERED: Potassium Chloride 10 MEQ TAB PO SCH (21:00)
[2020-09-14] MEDS ORDERED: Atorvastatin Calcium 20 MG TAB PO SCH (21:00)
[2020-09-14] MEDS ORDERED: Non-Formulary Item 1 EACH (Insulin Detemir 100 Units/Ml [Levemir] 100 UNITS/ML Vial) SC SCH (21:00)
[2020-09-15] MEDS: HumaLOG 300 UNITS/3 ML VIAL SC PRN ×2 (05:52→12:11)
[2020-09-15] MEDS: Furosemide 20 MG TAB PO SCH (08:55)
[2020-09-15] MEDS: Ascorbic Acid 500 mg Chewable Tablet PO SCH (08:55)
[2020-09-15] MEDS: Gabapentin 300 MG CAP PO SCH (08:55)
[2020-09-15] MEDS: Metoprolol Tartrate 25 MG TAB PO SCH (08:55)
[2020-09-15] MEDS: Enoxaparin Sodium 30 MG/0.3 ML SYRINGE SC SCH (08:56)
[2020-09-15] MEDS: D5 1/2 NS w/20 mEq KCL 1,000 ML IV SCH (08:58)
[2020-09-15] MEDS: Pramipexole Di-HCl 0.25 MG TAB PO SCH (08:59)
[2020-09-15] MEDS ORDERED: Lantus 1000 UNITS/10 ML VIAL SC SCH (09:00)
[2020-09-15] MEDS ORDERED: Non-Formulary Item 1 EACH (Insulin Detemir 100 Units/Ml [Levemir] 100 UNITS/ML Vial) SC SCH (09:00)
[2020-09-15 12:11] VITALS: BP 113/69; TEMP 98
== END 2020-09-15 13:42 | disposition home or self-care (01) | DRG 638 ==
LOC: ERS 12:49 → IMCU/EMU 15:59 → T4-A 09-15 10:15
PROVIDERS: ADMIT Internal Medicine; ATTEND Internal Medicine
DX: E11.00 Type 2 diabetes mellitus with hyperosmolarity without nonketotic hyperglycemic-hyperosmolar coma (NKHHC) (principal); I12.0 Hypertensive chronic kidney disease with stage 5 chronic kidney disease or end stage renal disease; Z20.822 Contact with and (suspected) exposure to COVID-19; E87.1 Hypo-osmolality and hyponatremia; E11.42 Type 2 diabetes mellitus with diabetic polyneuropathy; W17.89XA Other fall from one level to another, initial encounter; E78.5 Hyperlipidemia, unspecified; S00.03XA Contusion of scalp, initial encounter; E11.22 Type 2 diabetes mellitus with diabetic chronic kidney disease; N18.30 Chronic kidney disease, stage 3 unspecified; Y92.481 Parking lot as the place of occurrence of the external cause; Z85.46 Personal history of malignant neoplasm of prostate; Z79.4 Long term (current) use of insulin; Z79.899 Other long term (current) drug therapy; Z87.891 Personal history of nicotine dependence
CPT/HCPCS: 36415; 36416; 70450; 71045; 80048; 80053; 82010; 82805; 83930; 84484; 85025; 87635; 90471; 90732; 93005; 96365; 96366; G0009; J1650; J1815; J3480; U0003; U0005

== ENCOUNTER 2020-10-11 12:16 | Outpatient (CLI) | payer MEDICARE ==
[~2020-10-11 12:16] MED LIST: Iopamidol 370 76% 100 ML VIAL ONE
== END 2020-10-11 12:17 | disposition home or self-care (01) ==
LOC: BICCT 12:16
PROVIDERS: ATTEND Family Medicine
DX: N29 Other disorders of kidney and ureter in diseases classified elsewhere (principal); K44.9 Diaphragmatic hernia without obstruction or gangrene; N28.1 Cyst of kidney, acquired
CPT/HCPCS: 74170; Q9967

== ENCOUNTER 2020-11-24 22:24 | Inpatient (IN) | payer MEDICARE ==
[2020-11-24] MEDS ORDERED: Acetaminophen 325 MG TAB PO PRN (22:45)
[2020-11-24] MEDS ORDERED: Ondansetron PF 4 MG/2 ML Vial IVP PRN (22:45)
[2020-11-24] MEDS ORDERED: Dextrose 50% Abboject 50 ML SYRINGE SLOW IVP PRN (22:47)
[2020-11-24] MEDS ORDERED: Dextrose 5% in Water 1,000 ML IV PRN (22:47)
[2020-11-24 23:29] LABS: Anion Gap 13 mmol/L (10-20); BUN (Urea Nitrogen) 9 mg/dL (8.4-25.7); Calc. Creatinine Clearance 0 mL/min (70-130); Calcium 8.9 mg/dL (7.8-10.44); Carbon Dioxide 25 mmol/L (23-31); Chloride 102 mmol/L (98-107); Glucose 313 mg/dL (83-110); Potassium 4.3 mmol/L (3.5-5.1); Sodium 136 mmol/L (136-145)
[2020-11-24] MEDS ORDERED: Lantus 1000 UNITS/10 ML VIAL SC SCH (23:30)
[2020-11-25 00:02] VITALS: BMI 25.6
[2020-11-25] MEDS: HumaLOG 300 UNITS/3 ML VIAL SC PRN ×5 (00:16→20:19)
[2020-11-25] MEDS: CEFAZOLIN 2 GM in Premix Bag 1 BAG IVPB SCH ×3 (02:42→17:17)
[2020-11-25] MEDS ORDERED: Cyclobenzaprine 10 MG TAB PO SCH (04:15)
[2020-11-25 05:26] LABS: #Basophils 0.1 thou/uL (0.0-0.2); #Eosinphils 0.4 thou/uL (0.0-0.7); #Lymphocytes 1.9 thou/uL (1.20-3.40); #Monocytes 0.9 thou/uL (0.11-0.59); #Neutrophils 6.5 thou/uL (1.40-6.50); %Basophils 0.7 % (0.0-1.0); %Eosinophils 3.6 % (0.0-10.0); %Lymphocytes 19.8 % (21.0-51.0); %Monocytes 9.5 % (0.0-10.0); %Neutrophils 66.5 % (42.0-75.0); Hemoglobin 13.1 g/dL (14.0-18.0); Mean Corpuscular HGB CONC 33.6 g/dL (32.0-36.0); Mean Corpuscular Hemoglobin 33.2 pg (27.0-31.0); Mean Corpuscular Volume 98.8 fL (78.0-98.0); Mean Platelet Volume 7.8 fL (7.4-10.4); Platelet Count 331 thou/uL (130-400); RBC Distribution Width 11.9 % (11.5-14.5); Red Blood Cell (RBC) Count 3.94 mill/uL (4.70-6.10); White Blood Cell (WBC) Count 9.8 thou/uL (4.8-10.8)
[2020-11-25 05:41] LABS: Anion Gap 10 mmol/L (10-20); BUN (Urea Nitrogen) 8 mg/dL (8.4-25.7); Calc. Creatinine Clearance 96 mL/min (70-130); Calcium 8.5 mg/dL (7.8-10.44); Carbon Dioxide 26 mmol/L (23-31); Chloride 102 mmol/L (98-107); Glucose 237 mg/dL (83-110); Potassium 3.6 mmol/L (3.5-5.1); Sodium 134 mmol/L (136-145)
[2020-11-25] MEDS: Furosemide 20 MG TAB PO SCH (08:54)
[2020-11-25] MEDS: Potassium Chloride 10 MEQ TAB PO SCH (08:54)
[2020-11-25] MEDS: Enoxaparin Sodium 30 MG/0.3 ML SYRINGE SC SCH (08:54)
[2020-11-25] MEDS: Lantus 1000 UNITS/10 ML VIAL SC SCH ×2 (08:54→20:19)
[2020-11-25] MEDS: Metoprolol Tartrate 50 MG TAB PO SCH ×2 (08:57→20:20)
[2020-11-25] MEDS ORDERED: Non-Formulary Item 1 EACH (Insulin Detemir 100 Units/Ml [Levemir] 100 UNITS/ML Vial) SC SCH ×2 (09:00→21:00)
[2020-11-25] MEDS: Nystatin Powder 15 GM BOT TOP PRN (17:17)
[2020-11-25] MEDS: Atorvastatin Calcium 20 MG TAB PO SCH (20:20)
[2020-11-26] MEDS ORDERED: Pramipexole Di-HCl 0.25 MG TAB PO SCH (01:45)
[2020-11-26] MEDS: CEFAZOLIN 2 GM in Premix Bag 1 BAG IVPB SCH ×3 (01:52→18:28)
[2020-11-26 05:46] LABS: #Basophils 0.1 thou/uL (0.0-0.2); #Eosinphils 0.4 thou/uL (0.0-0.7); #Lymphocytes 1.3 thou/uL (1.20-3.40); #Monocytes 0.8 thou/uL (0.11-0.59); %Basophils 0.9 % (0.0-1.0); %Eosinophils 4.4 % (0.0-10.0); %Lymphocytes 15.2 % (21.0-51.0); %Monocytes 9.6 % (0.0-10.0); %Neutrophils 69.8 % (42.0-75.0); Hemoglobin 13.4 g/dL (14.0-18.0); MDiff Complete? YES; Mean Corpuscular HGB CONC 34.4 g/dL (32.0-36.0); Mean Corpuscular Hemoglobin 34.1 pg (27.0-31.0); Mean Corpuscular Volume 99.1 fL (78.0-98.0); Mean Platelet Volume 8.4 fL (7.4-10.4); Platelet Clumps SLIGHT; Platelet Count 134 thou/uL (130-400); Platelet Morphology Comment Appears Adequate; RBC Distribution Width 11.8 % (11.5-14.5); Red Blood Cell (RBC) Count 3.94 mill/uL (4.70-6.10); White Blood Cell (WBC) Count 8.6 thou/uL (4.8-10.8)
[2020-11-26 05:52] LABS: Anion Gap 14 mmol/L (10-20); BUN (Urea Nitrogen) 5 mg/dL (8.4-25.7); Calc. Creatinine Clearance 99 mL/min (70-130); Calcium 8.5 mg/dL (7.8-10.44); Carbon Dioxide 21 mmol/L (23-31); Chloride 107 mmol/L (98-107); Glucose 230 mg/dL (83-110); Potassium 3.8 mmol/L (3.5-5.1); Sodium 138 mmol/L (136-145)
[2020-11-26] MEDS: HumaLOG 300 UNITS/3 ML VIAL SC PRN ×4 (07:01→21:02)
[2020-11-26] MEDS: Potassium Chloride 10 MEQ TAB PO SCH (07:42)
[2020-11-26] MEDS: Metoprolol Tartrate 50 MG TAB PO SCH ×2 (07:42→21:02)
[2020-11-26] MEDS: Furosemide 20 MG TAB PO SCH (07:42)
[2020-11-26] MEDS: Enoxaparin Sodium 30 MG/0.3 ML SYRINGE SC SCH (07:43)
[2020-11-26] MEDS: Lantus 1000 UNITS/10 ML VIAL SC SCH ×2 (07:44→21:02)
[2020-11-26] MEDS ORDERED: GUAIFENESIN SF SOLN 200 MG/10 ML UDCUP PO PRN (10:34)
[2020-11-26] MEDS ORDERED: HYDROcodone/Acetaminophen 5/325 mg Tablet PO PRN (10:34)
[2020-11-26] MEDS ORDERED: Bisacodyl 5 MG TAB PO PRN (10:34)
[2020-11-26] MEDS ORDERED: Calcium Carbonate 500 MG ChewTAB PO PRN (10:34)
[2020-11-26] MEDS ORDERED: Loratadine 10 MG TAB PO PRN (10:34)
[2020-11-26] MEDS ORDERED: Benzonatate 100 MG CAP PO PRN (10:34)
[2020-11-26] MEDS ORDERED: Cepastat Lozenges 1 LOZ PO PRN (10:34)
[2020-11-26] MEDS ORDERED: Sodium Chloride 0.65% Nasal 44 ML BOT EA NARE PRN (10:34)
[2020-11-26] MEDS ORDERED: hydrALAZINE 20 MG/ML VIAL SLOW IVP PRN (10:34)
[2020-11-26] MEDS ORDERED: Loperamide HCl 2 MG CAP PO PRN (10:34)
[2020-11-26] MEDS ORDERED: Zolpidem Tartrate 5 MG TAB PO PRN (10:34)
[2020-11-26] MEDS ORDERED: Senokot S 8.6-50 MG TAB PO PRN (10:34)
[2020-11-26] MEDS: Nystatin Powder 15 GM BOT TOP PRN ×2 (11:03→21:03)
[2020-11-26] MEDS: Pramipexole Di-HCl 0.25 MG TAB PO SCH (21:01)
[2020-11-26] MEDS: Atorvastatin Calcium 20 MG TAB PO SCH (21:02)
[2020-11-27] MEDS: CEFAZOLIN 2 GM in Premix Bag 1 BAG IVPB SCH ×3 (01:31→17:00)
[2020-11-27 05:59] LABS: Anion Gap 12 mmol/L (10-20); BUN (Urea Nitrogen) 6 mg/dL (8.4-25.7); Calc. Creatinine Clearance 102 mL/min (70-130); Calcium 8.8 mg/dL (7.8-10.44); Carbon Dioxide 26 mmol/L (23-31); Chloride 107 mmol/L (98-107); Glucose 138 mg/dL (83-110); Potassium 3.6 mmol/L (3.5-5.1); Sodium 141 mmol/L (136-145)
[2020-11-27] MEDS: Furosemide 20 MG TAB PO SCH (08:34)
[2020-11-27] MEDS: Metoprolol Tartrate 50 MG TAB PO SCH ×2 (08:34→20:46)
[2020-11-27] MEDS: Potassium Chloride 10 MEQ TAB PO SCH (08:34)
[2020-11-27] MEDS: Lantus 1000 UNITS/10 ML VIAL SC SCH ×2 (08:35→20:47)
[2020-11-27] MEDS: Enoxaparin Sodium 30 MG/0.3 ML SYRINGE SC SCH (08:42)
[2020-11-27] MEDS: Nystatin Powder 15 GM BOT TOP PRN (08:59)
[2020-11-27] MEDS: HumaLOG 300 UNITS/3 ML VIAL SC PRN ×3 (11:39→20:48)
[2020-11-27] MEDS: Pramipexole Di-HCl 0.25 MG TAB PO SCH (20:46)
[2020-11-27] MEDS: Atorvastatin Calcium 20 MG TAB PO SCH (20:46)
[2020-11-27] MEDS ORDERED: Gabapentin 100 MG CAP PO SCH (21:00)
[2020-11-28] MEDS: CEFAZOLIN 2 GM in Premix Bag 1 BAG IVPB SCH ×2 (02:34→08:39)
[2020-11-28 05:37] LABS: #Basophils 0.1 thou/uL (0.0-0.2); #Eosinphils 0.4 thou/uL (0.0-0.7); #Lymphocytes 1.4 thou/uL (1.20-3.40); #Monocytes 0.7 thou/uL (0.11-0.59); #Neutrophils 5.1 thou/uL (1.40-6.50); %Basophils 1.1 % (0.0-1.0); %Eosinophils 4.8 % (0.0-10.0); %Lymphocytes 18.4 % (21.0-51.0); %Monocytes 8.6 % (0.0-10.0); %Neutrophils 67.1 % (42.0-75.0); Hemoglobin 12.8 g/dL (14.0-18.0); Mean Corpuscular HGB CONC 34.5 g/dL (32.0-36.0); Mean Corpuscular Hemoglobin 34.5 pg (27.0-31.0); Mean Corpuscular Volume 99.8 fL (78.0-98.0); Mean Platelet Volume 7.6 fL (7.4-10.4); Platelet Count 298 thou/uL (130-400); RBC Distribution Width 11.7 % (11.5-14.5); Red Blood Cell (RBC) Count 3.73 mill/uL (4.70-6.10); White Blood Cell (WBC) Count 7.6 thou/uL (4.8-10.8)
[2020-11-28 06:00] LABS: Anion Gap 12 mmol/L (10-20); BUN (Urea Nitrogen) 7 mg/dL (8.4-25.7); Calc. Creatinine Clearance 115 mL/min (70-130); Calcium 8.5 mg/dL (7.8-10.44); Carbon Dioxide 23 mmol/L (23-31); Chloride 108 mmol/L (98-107); Glucose 92 mg/dL (83-110); Potassium 3.8 mmol/L (3.5-5.1); Sodium 139 mmol/L (136-145)
[2020-11-28] MEDS: Enoxaparin Sodium 30 MG/0.3 ML SYRINGE SC SCH (08:37)
[2020-11-28] MEDS: Lantus 1000 UNITS/10 ML VIAL SC SCH (08:38)
[2020-11-28] MEDS: Potassium Chloride 10 MEQ TAB PO SCH (08:39)
[2020-11-28] MEDS: Metoprolol Tartrate 50 MG TAB PO SCH (08:39)
[2020-11-28] MEDS: Furosemide 20 MG TAB PO SCH (08:39)
[2020-11-28] MEDS: Nystatin Powder 15 GM BOT TOP PRN (08:39)
[2020-11-28] MEDS ORDERED: Fluconazole 100 MG TAB PO SCH (09:00)
[2020-11-28 10:44] VITALS: BP 115/69; TEMP 97.9
[2020-11-28] MEDS: HumaLOG 300 UNITS/3 ML VIAL SC PRN (11:20)
== END 2020-11-28 16:05 | disposition home health service (06) | DRG 638 ==
LOC: SURG A 22:24 → OBSVTOIN 11-26 08:36
PROVIDERS: ADMIT Internal Medicine; ATTEND Internal Medicine
DX: E11.628 Type 2 diabetes mellitus with other skin complications (principal); L03.115 Cellulitis of right lower limb; Z20.822 Contact with and (suspected) exposure to COVID-19; Z66 Do not resuscitate; E11.22 Type 2 diabetes mellitus with diabetic chronic kidney disease; I12.9 Hypertensive chronic kidney disease with stage 1 through stage 4 chronic kidney disease, or unspecified chronic kidney disease; E78.5 Hyperlipidemia, unspecified; N18.30 Chronic kidney disease, stage 3 unspecified; E11.51 Type 2 diabetes mellitus with diabetic peripheral angiopathy without gangrene; E11.65 Type 2 diabetes mellitus with hyperglycemia; R29.6 Repeated falls; N40.0 Benign prostatic hyperplasia without lower urinary tract symptoms; E11.40 Type 2 diabetes mellitus with diabetic neuropathy, unspecified; Z85.46 Personal history of malignant neoplasm of prostate; Z79.4 Long term (current) use of insulin; Z79.899 Other long term (current) drug therapy; Z87.891 Personal history of nicotine dependence
CPT/HCPCS: 36415; 36416; 80048; 85025; 87070; 96365; 96366; 96372; 96376; G0378; J0690; J1650; J1815

== ENCOUNTER 2021-03-14 01:26 | Inpatient (IN) | payer OTHER, MEDICARE ==
[2021-03-14 02:00] VITALS: BMI 25.0
[2021-03-14] MEDS ORDERED: Sodium Chloride 0.9% 1,000 ML IV SCH ×2 (02:15→02:42)
[2021-03-14] MEDS ORDERED: HumaLOG 300 UNITS/3 ML VIAL SC PRN (02:42)
[2021-03-14] MEDS ORDERED: Ondansetron ODT 4 MG TAB PO PRN (02:42)
[2021-03-14] MEDS ORDERED: Dextrose 50% Abboject 50 ML SYRINGE SLOW IVP PRN ×2 (02:42)
[2021-03-14] MEDS ORDERED: Dextrose 5% in Water 1,000 ML IV PRN (02:42)
[2021-03-14] MEDS ORDERED: Ondansetron PF 4 MG/2 ML Vial IVP PRN (02:42)
[2021-03-14] MEDS ORDERED: traMADol HCl 50 MG TAB PO PRN ×2 (03:38)
[2021-03-14] MEDS ORDERED: Cyclobenzaprine 10 MG TAB PO PRN (03:38)
[2021-03-14] MEDS ORDERED: Ketorolac Tromethamine 30 MG/ML VIAL IVP SCH (03:45)
[2021-03-14] MEDS ORDERED: Acetaminophen 500 MG TAB PO SCH (04:00)
[2021-03-14] MEDS ORDERED: Ibuprofen 800 MG TAB PO SCH ×2 (04:00→09:00)
[2021-03-14] MEDS: HumaLOG 300 UNITS/3 ML VIAL SC PRN ×4 (04:29→17:32)
[2021-03-14 06:46] LABS: #Basophils 0.1 thou/uL (0.0-0.2); #Eosinphils 0.4 thou/uL (0.0-0.7); #Lymphocytes 1.4 thou/uL (1.20-3.40); #Monocytes 1.3 thou/uL (0.11-0.59); #Neutrophils 10.5 thou/uL (1.40-6.50); %Basophils 0.5 % (0.0-1.0); %Eosinophils 2.6 % (0.0-10.0); %Lymphocytes 10.3 % (21.0-51.0); %Monocytes 9.8 % (0.0-10.0); %Neutrophils 76.9 % (42.0-75.0); Hemoglobin 13.3 g/dL (14.0-18.0); Mean Corpuscular HGB CONC 34.9 g/dL (32.0-36.0); Mean Corpuscular Hemoglobin 32.3 pg (27.0-31.0); Mean Corpuscular Volume 92.4 fL (78.0-98.0); Mean Platelet Volume 8.4 fL (7.4-10.4); Platelet Count 232 thou/uL (130-400); RBC Distribution Width 12.3 % (11.5-14.5); Red Blood Cell (RBC) Count 4.11 mill/uL (4.70-6.10); White Blood Cell (WBC) Count 13.7 thou/uL (4.8-10.8)
[2021-03-14 06:58] LABS: Anion Gap 14 mmol/L (10-20); BUN (Urea Nitrogen) 13 mg/dL (8.4-25.7); Calc. Creatinine Clearance 78 mL/min (70-130); Calcium 8.5 mg/dL (7.8-10.44); Carbon Dioxide 22 mmol/L (23-31); Chloride 102 mmol/L (98-107); Glucose 363 mg/dL (83-110); Potassium 3.7 mmol/L (3.5-5.1); Sodium 134 mmol/L (136-145)
[2021-03-14 07:01] LABS: Hemoglobin A1c 12.1 % (4.0-6.0)
[2021-03-14] MEDS ORDERED: Lantus 1000 UNITS/10 ML VIAL SC SCH ×2 (09:00→21:00)
[2021-03-14] MEDS: Famotidine 20 MG TAB PO SCH ×2 (09:00→21:17)
[2021-03-14] MEDS: Ibuprofen 200 MG TAB PO SCH ×3 (09:07→21:17)
[2021-03-14] MEDS: Acetaminophen 500 MG TAB PO SCH ×2 (11:59→18:44)
[2021-03-14] MEDS: traMADol HCl 50 MG TAB PO SCH ×2 (12:00→18:46)
[2021-03-14] MEDS: Ipratropium/Albuterol Sulfate 4 GM AER IH SCH ×2 (13:00→19:00)
[2021-03-14] MEDS: Gabapentin 300 MG CAP PO SCH ×2 (17:27→21:17)
[2021-03-14] MEDS: Atorvastatin Calcium 20 MG TAB PO SCH (21:16)
[2021-03-14] MEDS: Senokot S 8.6-50 MG TAB PO SCH (21:17)
[2021-03-15] MEDS: Acetaminophen 500 MG TAB PO SCH ×5 (00:25→23:43)
[2021-03-15] MEDS: traMADol HCl 50 MG TAB PO SCH ×5 (00:26→23:44)
[2021-03-15] MEDS: Ipratropium/Albuterol Sulfate 4 GM AER IH SCH ×3 (01:00→14:29)
[2021-03-15] MEDS ORDERED: Dextromethorphan Polistirex 30 MG/5 ML (89 ML BOTTLE) PO PRN ×2 (04:08→04:18)
[2021-03-15] MEDS: HumaLOG 300 UNITS/3 ML VIAL SC PRN ×3 (04:52→18:54)
[2021-03-15 07:40] LABS: #Eosinphils 0.5 thou/uL (0.0-0.7); #Lymphocytes 0.6 thou/uL (1.20-3.40); #Monocytes 0.9 thou/uL (0.11-0.59); %Basophils 0.3 % (0.0-1.0); %Eosinophils 4.2 % (0.0-10.0); %Lymphocytes 5.6 % (21.0-51.0); %Monocytes 8.4 % (0.0-10.0); %Neutrophils 81.5 % (42.0-75.0); Hemoglobin 12.9 g/dL (14.0-18.0); Mean Corpuscular HGB CONC 33.5 g/dL (32.0-36.0); Mean Corpuscular Hemoglobin 31.8 pg (27.0-31.0); Mean Corpuscular Volume 95.2 fL (78.0-98.0); Mean Platelet Volume 8.8 fL (7.4-10.4); Platelet Count 200 thou/uL (130-400); RBC Distribution Width 12.4 % (11.5-14.5); Red Blood Cell (RBC) Count 4.05 mill/uL (4.70-6.10); White Blood Cell (WBC) Count 11.1 thou/uL (4.8-10.8)
[2021-03-15 07:47] LABS: Anion Gap 11 mmol/L (10-20); BUN (Urea Nitrogen) 19 mg/dL (8.4-25.7); Calc. Creatinine Clearance 97 mL/min (70-130); Calcium 7.9 mg/dL (7.8-10.44); Carbon Dioxide 23 mmol/L (23-31); Chloride 104 mmol/L (98-107); Glucose 254 mg/dL (83-110); Magnesium 1.6 mg/dL (1.6-2.6); Phosphorus 2.8 mg/dL (2.3-4.7); Potassium 3.8 mmol/L (3.5-5.1); Sodium 134 mmol/L (136-145)
[2021-03-15] MEDS ORDERED: Magnesium Sulfate 2 GM in Sodium Chloride 0.9% 100 ML IVPB SCH (09:00)
[2021-03-15] MEDS ORDERED: Lantus 1000 UNITS/10 ML VIAL SC SCH (09:00)
[2021-03-15] MEDS ORDERED: Potassium Phosphate 15 MMOL, Magnesium Sulfate 2 GM in Sodium Chloride 0.9% 250 ML 250 ML IVPB SCH (09:00)
[2021-03-15] MEDS ORDERED: Gabapentin 300 MG CAP PO SCH (09:00)
[2021-03-15] MEDS: Senokot S 8.6-50 MG TAB PO SCH ×2 (09:07→20:11)
[2021-03-15] MEDS: Enoxaparin Sodium 30 MG/0.3 ML SYRINGE SC SCH ×2 (09:07→20:11)
[2021-03-15] MEDS: Polyethylene Glycol 3350 17 GM Packet PO SCH (09:07)
[2021-03-15] MEDS: Metoprolol Tartrate 50 MG TAB PO SCH ×2 (09:08→20:10)
[2021-03-15] MEDS: Famotidine 20 MG TAB PO SCH ×2 (09:08→20:11)
[2021-03-15] MEDS: Ibuprofen 200 MG TAB PO SCH ×3 (09:08→20:10)
[2021-03-15] MEDS: Ascorbic Acid 500 mg Chewable Tablet PO SCH ×2 (09:08→20:09)
[2021-03-15] MEDS: Gabapentin 300 MG CAP PO SCH ×2 (16:15→20:12)
[2021-03-15] MEDS ORDERED: Albuterol 200 PUFF (6.7GM INHALER) INH SCH (20:00)
[2021-03-15] MEDS: Atorvastatin Calcium 20 MG TAB PO SCH (20:09)
[2021-03-15] MEDS: Pramipexole Di-HCl 0.25 MG TAB PO SCH (20:10)
[2021-03-15] MEDS: Lantus 1000 UNITS/10 ML VIAL SC SCH (20:15)
[2021-03-16] MEDS: Albuterol 200 PUFF (6.7GM INHALER) INH SCH ×5 (04:46→20:27)
[2021-03-16] MEDS: Ipratropium/Albuterol Sulfate 4 GM AER IH SCH (04:47)
[2021-03-16] MEDS: Acetaminophen 500 MG TAB PO SCH ×3 (05:23→18:59)
[2021-03-16] MEDS: traMADol HCl 50 MG TAB PO SCH ×3 (05:23→19:01)
[2021-03-16] MEDS: HumaLOG 300 UNITS/3 ML VIAL SC PRN ×2 (05:33→17:39)
[2021-03-16 07:14] LABS: Anion Gap 14 mmol/L (10-20); BUN (Urea Nitrogen) 20 mg/dL (8.4-25.7); Calc. Creatinine Clearance 75 mL/min (70-130); Carbon Dioxide 21 mmol/L (23-31); Chloride 105 mmol/L (98-107); Glucose 273 mg/dL (83-110); Magnesium 2.2 mg/dL (1.6-2.6); Potassium 4.9 mmol/L (3.5-5.1); Sodium 135 mmol/L (136-145)
[2021-03-16] MEDS ORDERED: metFORMIN 500 MG TAB PO SCH (08:45)
[2021-03-16] MEDS: Senokot S 8.6-50 MG TAB PO SCH ×2 (09:13→20:32)
[2021-03-16] MEDS: Enoxaparin Sodium 30 MG/0.3 ML SYRINGE SC SCH ×2 (09:13→20:31)
[2021-03-16] MEDS: Ibuprofen 200 MG TAB PO SCH ×3 (09:14→20:31)
[2021-03-16] MEDS: Metoprolol Tartrate 50 MG TAB PO SCH ×2 (09:14→20:32)
[2021-03-16] MEDS: Gabapentin 300 MG CAP PO SCH ×3 (09:14→20:31)
[2021-03-16] MEDS: Ascorbic Acid 500 mg Chewable Tablet PO SCH ×2 (09:14→20:31)
[2021-03-16] MEDS: Lantus 1000 UNITS/10 ML VIAL SC SCH ×2 (09:15→20:32)
[2021-03-16] MEDS: Polyethylene Glycol 3350 17 GM Packet PO SCH (09:16)
[2021-03-16] MEDS: metFORMIN 500 MG TAB PO SCH (17:26)
[2021-03-16] MEDS: Atorvastatin Calcium 20 MG TAB PO SCH (20:31)
[2021-03-16] MEDS: Pramipexole Di-HCl 0.25 MG TAB PO SCH (20:32)
[2021-03-17] MEDS: Acetaminophen 500 MG TAB PO SCH ×2 (00:43→06:10)
[2021-03-17] MEDS: traMADol HCl 50 MG TAB PO SCH ×2 (00:43→06:10)
[2021-03-17] MEDS: Albuterol 200 PUFF (6.7GM INHALER) INH SCH ×2 (00:48→08:15)
[2021-03-17 07:40] LABS: Anion Gap 13 mmol/L (10-20); BUN (Urea Nitrogen) 17 mg/dL (8.4-25.7); Calc. Creatinine Clearance 95 mL/min (70-130); Calcium 8.3 mg/dL (7.8-10.44); Carbon Dioxide 25 mmol/L (23-31); Chloride 106 mmol/L (98-107); Glucose 124 mg/dL (83-110); Phosphorus 2.7 mg/dL (2.3-4.7); Potassium 3.7 mmol/L (3.5-5.1); Sodium 140 mmol/L (136-145)
[2021-03-17 07:50] VITALS: BP 123/73; TEMP 97.8
[2021-03-17] MEDS: Ascorbic Acid 500 mg Chewable Tablet PO SCH (09:10)
[2021-03-17] MEDS: Enoxaparin Sodium 30 MG/0.3 ML SYRINGE SC SCH (09:10)
[2021-03-17] MEDS: metFORMIN 500 MG TAB PO SCH (09:10)
[2021-03-17] MEDS: Gabapentin 300 MG CAP PO SCH (09:10)
[2021-03-17] MEDS: Ibuprofen 200 MG TAB PO SCH (09:10)
[2021-03-17] MEDS: Metoprolol Tartrate 50 MG TAB PO SCH (09:10)
[2021-03-17] MEDS: Lantus 1000 UNITS/10 ML VIAL SC SCH (12:46)
[2021-03-17] MEDS: Senokot S 8.6-50 MG TAB PO SCH (12:47)
[2021-03-17] MEDS: Polyethylene Glycol 3350 17 GM Packet PO SCH (12:47)
== END 2021-03-17 11:00 | DRG 184 ==
LOC: SJJU 01:47 → OBSVTOIN 03-16 10:14
PROVIDERS: ADMIT Surgery; ATTEND Surgery
DX: S22.41XA Multiple fractures of ribs, right side, initial encounter for closed fracture (principal); S22.20XA Unspecified fracture of sternum, initial encounter for closed fracture; S27.892A Contusion of other specified intrathoracic organs, initial encounter; S82.842A Displaced bimalleolar fracture of left lower leg, initial encounter for closed fracture; E11.65 Type 2 diabetes mellitus with hyperglycemia; R91.1 Solitary pulmonary nodule; E11.22 Type 2 diabetes mellitus with diabetic chronic kidney disease; E78.5 Hyperlipidemia, unspecified; I12.9 Hypertensive chronic kidney disease with stage 1 through stage 4 chronic kidney disease, or unspecified chronic kidney disease; C61 Malignant neoplasm of prostate; E11.42 Type 2 diabetes mellitus with diabetic polyneuropathy; N18.30 Chronic kidney disease, stage 3 unspecified; V49.40XA Driver injured in collision with unspecified motor vehicles in traffic accident, initial encounter; Z79.4 Long term (current) use of insulin; Z79.899 Other long term (current) drug therapy; Z90.79 Acquired absence of other genital organ(s); Z98.890 Other specified postprocedural states; Z87.891 Personal history of nicotine dependence; Z86.16 Personal history of COVID-19
CPT/HCPCS: 36415; 36416; 71045; 80048; 83036; 83735; 84100; 85025; 96372; 96374; G0378; J1650; J1815; J1885; J2405; J3475; J7050

== ENCOUNTER 2023-07-09 23:38 | Outpatient (CLI) | payer MEDICARE ==
[2023-07-10] MEDS ORDERED: Iopamidol 370 76% 100 ML VIAL ONE (13:17)
== END 2023-07-09 23:39 | disposition home or self-care (01) ==
LOC: CT 23:38
PROVIDERS: ATTEND Student in an Organized Health Care Education/Training Program
DX: R06.00 Dyspnea, unspecified (principal); K44.9 Diaphragmatic hernia without obstruction or gangrene; I51.7 Cardiomegaly
CPT/HCPCS: 71275

== ENCOUNTER 2025-03-02 11:08 | Emergency (ER) | payer MEDICARE, SELFPAY ==
[2025-03-02] MEDS ORDERED: Acetaminophen 325 MG TAB ONE (11:51)
[2025-03-02] MEDS ORDERED: Acetaminophen 500 MG TAB ONE (11:54)
[2025-03-02] MEDS ORDERED: Boostrix 0.5 ML (Tdap) VIAL (>/=7 yrs of age) ONE ×2 (11:54→11:56)
== END 2025-03-02 13:35 ==
LOC: ERS 11:08
DX: S09.90XA Unspecified injury of head, initial encounter (principal); E11.9 Type 2 diabetes mellitus without complications; E78.00 Pure hypercholesterolemia, unspecified; W18.30XA Fall on same level, unspecified, initial encounter; Z79.4 Long term (current) use of insulin; Z79.01 Long term (current) use of anticoagulants
CPT/HCPCS: 70450; 72125; 90471; 90715; G0390